=== PATIENT | female | born 1985 | race African-American/Black ===

== ENCOUNTER 2017-09-26 12:43 | Emergency (ER) | payer MEDICAID ==
[~2017-09-26] VITALS: Ht 180.3 cm; Wt 100.0 kg
[~2017-09-26 12:43] MED LIST: ALBU18HF2 IH; FERR-43 PO; FOLI-43 PO; PREN-88 PO
[2017-09-26] MEDS ORDERED: PREDNISONE 20MG TABLET PO STA (14:29)
[2017-09-26] MEDS ORDERED: ALBUTEROL (0.083%) 2.5MG/3ML NEB HHN STA (14:29)
[2017-09-26] MEDS ORDERED: IPRATROPIUM BROMIDE (0.02%) 0.5MG/2.5ML NEB HHN STA (14:29)
[2017-09-26] MEDS ORDERED: LEVOFLOXACIN 500MG TABLET PO ONE (14:30)
[2017-09-26 15:20] VITALS: BP 110/72
== END 2017-09-26 15:40 | disposition home or self-care (01) ==
LOC: ER 14:29
DX: J18.0 Bronchopneumonia, unspecified organism (principal); J45.901 Unspecified asthma with (acute) exacerbation; F17.200 Nicotine dependence, unspecified, uncomplicated
CPT/HCPCS: 71045; 81025; 87804; 94640; 99285; J7512; J7611

== ENCOUNTER 2018-09-01 20:52 | Emergency (ER) | payer MEDICAID ==
[~2018-09-01] VITALS: Ht 180.3 cm; Wt 101.0 kg
[2018-09-02] MEDS ORDERED: IBUPROFEN 600MG TABLET PO ONE (00:30)
[2018-09-02 01:10] VITALS: BP 142/86
== END 2018-09-02 01:15 | disposition home or self-care (01) ==
LOC: ER 20:52
DX: J06.9 Acute upper respiratory infection, unspecified (principal); J45.909 Unspecified asthma, uncomplicated; F17.200 Nicotine dependence, unspecified, uncomplicated
CPT/HCPCS: 71045; 81025; 99283